=== PATIENT | female | born 1975 | race Caucasian/White ===

== ENCOUNTER → 2023-07-01 06:28 | Day surgery (SDC) | payer OTHER, SELFPAY | LOC: GI 06:28 | PROVIDERS: ATTENDING PHYSICIAN Internal Medicine Gastroenterology | DX: Z12.11 Encounter for screening for malignant neoplasm of colon (principal); K56.699 Other intestinal obstruction unspecified as to partial versus complete obstruction | CPT/HCPCS: G0121 ==

== ENCOUNTER → 2023-07-20 10:41 | Outpatient (REF) | payer OTHER, SELFPAY | LOC: HWRAD 10:41 | PROVIDERS: ATTENDING PHYSICIAN Internal Medicine Gastroenterology; FAMILY PHYSICIAN Family Medicine | DX: R10.32 Left lower quadrant pain (principal); R10.31 Right lower quadrant pain; N80.9 Endometriosis, unspecified | CPT/HCPCS: 74177; Q9967 ==

== ENCOUNTER → 2023-08-17 16:11 | Outpatient (REF) | payer OTHER, SELFPAY | LOC: HWWDC 16:11 | PROVIDERS: ATTENDING PHYSICIAN Obstetrics & Gynecology Gynecology; FAMILY PHYSICIAN Family Medicine | DX: Z12.31 Encounter for screening mammogram for malignant neoplasm of breast (principal) | CPT/HCPCS: 77063; 77067 ==

== ENCOUNTER → 2024-09-14 14:50 | Outpatient (REF) | payer OTHER, SELFPAY | LOC: HWWDC 14:50 | PROVIDERS: ATTENDING PHYSICIAN Obstetrics & Gynecology Gynecology | DX: Z12.31 Encounter for screening mammogram for malignant neoplasm of breast (principal) | CPT/HCPCS: 77063; 77067 ==

== ENCOUNTER → 2024-11-09 14:13 | Outpatient (REF) | payer OTHER, SELFPAY | LOC: HWRAD 14:13 | PROVIDERS: ATTENDING PHYSICIAN Family Medicine | DX: N13.30 Unspecified hydronephrosis (principal) | CPT/HCPCS: 76770 ==